=== PATIENT | male | born 1980 | race Caucasian/White ===

== ENCOUNTER 2017-01-16 13:05 | Emergency (ER) | payer OTHER ==
--- NOTE | 2017-01-16 15:58 | DIAGNOSTIC IMAGING REPORT ---
PROCEDURE: CT ABD/PELVIS WITH CONTRAST CLINICAL INDICATION: Lower quadrant and Intal pain. TECHNIQUE: 125 ml of Isovue 300 were injected intravenously and axial images were obtained of the entire abdomen and pelvis with sagittal and coronal reformations. COMPARISON: None. FINDINGS: ABDOMEN: Lung bases are clear. Normal heart size. Liver, gallbladder, pancreas, spleen, adrenal glands and kidneys are normal. Normal abdominal aorta. Wall thickening of the cecum and long segment of the distal ileum. There are mildly prominent right lower quadrant mesenteric lymph nodes. PELVIS: Normal appendix. Normal prostate and bladder. There is no pelvic mass, inflammatory changes or free fluid. No suspicious osseous lesions. IMPRESSION: 1. Wall thickening of the cecum and long segment of the distal ileum suspicious for inflammatory bowel disease (Crohn disease). 2. Results discussed with Dr. Lindsay All CT scans at this facility use dose modulation, iterative reconstruction, and/or weight-based dosing when appropriate to reduce radiation dose to as low as reasonably achievable.
--- NOTE | 2017-01-16 16:22 | ED CLINICAL REPORT ---
Clinical Report - Physicians/Mid Levels [facility] [address] [place] [address] 01/16/2017 13:07 Patient: SUNDAY JONES Time Seen: 13:18. Arrived- By private vehicle. Historian- patient and family. HISTORY OF PRESENT ILLNESS Chief Complaint: LOWER ABDOMINAL PAIN AND RECTAL PAIN. This started several months ago and has been moderate (to severe). (5 days of rectal pain - Clindamycin and stool softeners for 2 months Abdominal pain - 4 days of lower abdominal pain.). Is still present. It was gradual in onset and has been waxing/waning. The patient has had rectal bleeding and pain and nausea but not had dark stools. No constipation. He has had vomiting (yesterday -3-4 times, today none.). (Last BM today, liquid plus pellets, x 4 Bloating Yesterday small amounts of diarrhea. Cant tell difference between gas stool. Fever - yes - subjective. First, episode of abdominal pain was 8 months ago. Three flare-ups since then.). Similar symptoms previously: Several times. Recent medical care: The patient was seen recently by a health care provider. ( Dr Nance for similar symptoms). REVIEW OF SYSTEMS The patient has had a subjective fever, abdominal pain, bloody stools, constipation and diarrhea. No decreased vision, ear pain, sore throat, chest pain or cough. No difficulty breathing or difficulty with urination. The patient has had back pain. It has been similar to previous symptoms. He has had skin rash. Has had similar previous symptoms of skin rash. PAST HISTORY Dea Ops: None Hosp: None Illness: Alternating constipation and diarrhea, psoriasis and seborrhea. Back pain / Tramadol. Medications: Lidocaine External. Docusate Calcium Oral. Clindamycin HCl Oral. Allergies: Aspirin. SOCIAL HISTORY The patient lives with a family member. FAMILY HISTORY (Mom has Chrohns). ADDITIONAL NOTES The nursing notes have been reviewed. PHYSICAL EXAM Vital Signs: 01/16/2017 13:26 BP: 135/91. HR: 92. RR: 20. O2 saturation: 100%. Temp: 98.2 F. Appearance: Alert. Patient in mild distress. Eyes: Eyes normal inspection. ENT: Pharynx normal. Neck: Normal inspection. CVS: Normal heart rate and rhythm. Heart sounds normal. Respiratory: No respiratory distress. Breath sounds normal. Abdomen: Moderate tenderness diffusely. Mild guarding present diffusely. No rebound tenderness. : Normal genitalia. Nontender. No mass noted on examination. Testes descended. Rectal: (Rectal diffusely quite tender. No perirectal masses. No stool). Skin: Moderate, erythematous, papular skin rash located on the face and genitalia. Extremities: Extremities exhibit normal ROM. No lower extremity edema. LABS, X-RAYS, AND EKG Abdominal CT: PROCEDURE: CT ABD/PELVIS WITH CONTRAST CLINICAL INDICATION: Lower quadrant and Intal pain. TECHNIQUE: 125 ml of Isovue 300 were injected intravenously and axial images were obtained of the entire abdomen and pelvis with sagittal and coronal reformations. COMPARISON: None. FINDINGS: ABDOMEN: Lung bases are clear. Normal heart size. Liver, gallbladder, pancreas, spleen, adrenal glands and kidneys are normal. Normal abdominal aorta. Wall thickening of the cecum and long segment of the distal ileum. There are mildly prominent right lower quadrant mesenteric lymph nodes. PELVIS: Normal appendix. Normal prostate and bladder. There is no pelvic mass, inflammatory changes or free fluid. No suspicious osseous lesions. IMPRESSION: 1. Wall thickening of the cecum and long segment of the distal ileum suspicious for inflammatory bowel disease (Crohn disease). 2. Results discussed with Dr. Neftali acharya radiation dose to as low as reasonably achievable. Electronically Final signed by:Kalpesh Carr MD 01/16/2017 3:57:47 PM. The study was interpreted by the radiologist and discussed with the radiologist. Laboratory Tests: UA-Culture if indicated: ([place]: 01/16/2017 15:35) ( MsgRcvd 01/16/2017 15:50) Final results Test Result Flag Units (Reference) URINE COLOR YELLOW URINE APPEARANCE CLEAR URINE GLUCOSE NEGATIVE (NEGATIVE) URINE BILIRUBIN NEGATIVE (NEGATIVE) URINE KETONE NEGATIVE (NEGATIVE) URINE SPECIFIC GRAVITY 1.020 (1.010-1.030) URINE PH 6.0 (5.0-8.0) URINE PROTEIN NEGATIVE (NEGATIVE) URINE UROBILINOGEN 0.2 EU/dL (0.2-1.0) URINE NITRITE NEGATIVE (NEGATIVE) URINE BLOOD NEGATIVE (NEGATIVE) URINE LEUK ESTERASE NEGATIVE (NEGATIVE) URINE RBC NONE SEEN rbc/hpf (0-1) URINE WBC RARE wbc/hpf (0-1) URINE EPITHELIAL CELLS RARE EPI/hpf (0-5) URINE BACTERIA NONE SEEN (NONE SEEN) URINE COMMENT CULT NOT INDICATED URINE CULTURES ARE SET-UP BASED ON THE FOLLOWING CRITERIA:POSITIVE NITRITEPOSITIVE LEUKOCYTE ESTERASEGREATER THAN 10 WHITE BLOOD CELLSMODERATE (2+) OR GREATER BACTERIA CBC w Diff: ([place]: 01/16/2017 14:30) ( [facility] 01/16/2017 14:48) Final results Test Result Flag Units (Reference) WHITE BLOOD COUNT 9.7 K/uL (4.5-11.5) RED BLOOD COUNT 4.91 M/uL (4.50-5.90) HEMOGLOBIN 15.1 gm/dL (13.5-17.5) HEMATOCRIT 44.2 % (41.0-53.0) MEAN CELL VOLUME 90 fL (80-100) MEAN CORPUSCULAR HGB 31 pg (26-34) MEAN CORPUSCULAR HGB CONC 34 g/dL (31-37) RED CELL DISTRIBUTION WIDTH 13.1 % (11.6-14.8) PLATELET COUNT 364 K/uL (150-400) NEUTROPHIL % 69.0 % (50-75) LYMPH % 21.5 L % (25-40) MONO % 6.5 % (3-14) EOSINOPHIL % 2.4 % (0-4) BASOPHIL % 0.6 % (0-2) CMP: ([place]: 01/16/2017 14:30) ( [facility] 01/16/2017 15:01) Final results Test Result Flag Units (Reference) GLUCOSE 94 mg/dL (70-110) BUN 17 mg/dL (7-18) CREATININE 1.0 mg/dL (0.6-1.3) Estimated GFR >60 mL/min Estimated GFR- >60 mL/min Note: Persistent reduction over 3 months in eGFR<60 mL/min/1.73 m2 defines CKD. Patients with eGFR values>=60 mL/min/1.73 m2 may also have CKD if evidence ofpersistent proteinuria. Additional information may be foundat www.kidney.org. SODIUM 140 mmol/L (136-145) POTASSIUM 4.6 mmol/L (3.5-5.1) CHLORIDE 102 mmol/L (98-107) CARBON DIOXIDE 28 mmol/L (21-32) CALCIUM 8.7 mg/dL (8.5-10.1) TOTAL PROTEIN 7.9 g/dL (6.4-8.2) ALBUMIN 3.6 g/dL (3.3-5.0) BILIRUBIN, TOTAL 0.5 mg/dL (0.0-1.0) ALKALINE PHOSPHATASE 65 U/L (46-116) AST (SGOT) 20 U/L (15-37) ALT (SGPT) 40 U/L (12-78) LIPASE 144 U/L (73-393) . PROGRESS AND PROCEDURES Course of Care: Pre-test differential diagnosis. Inflammatory bowel disease. Deep Abscess 15:36 01/16/17. Stool passed in ED was soft but semi-formed Mr. Jones has Crohn's disease. That would account tor a prior fistula history and current symptoms. He does not appear to have a rectal fistula or abscess at this time but does have active Crohn's disease. I will initiate treatment in the ED and refer him to his PCP. Disposition: Discharged. CLINICAL IMPRESSION Acute abdominal pain. Crohn's disease (ACUTE). INSTRUCTIONS Do not work for four days. (IMMEDIATE RECHECK IF WORSE). Prescription Medications: Azulfidine 500 mg tablets: Take 1 tablet orally every 6 hours. Dispense sixty (60). No refills. Substitution is permissible. Metronidazole 500 mg: Take 1 tablet orally every 12 hours for 7 days. No refill. Percocet 5 mg/325 mg: take 1-2 tablets orally every 4 hours. Dispense fifteen (15). No refill. Substitution is permissible. Prednisone 20 mg: take 3 orally every day for 5 days. Dispense fifteen (15). No refills. Follow-up: Follow up with your doctor DR NANCE in four days. Call for an appointment. Understanding of the discharge instructions verbalized by patient. (Electronically signed by Berlin Lindsay MD 01/19/2017 5:59)
--- NOTE | 2017-01-16 16:22 | ED NURSING NOTES ---
Clinical Report - Nurses [facility] [address] [place] [address] 01/16/2017 13:07 Patient: SUNDAY DUVAL TRIAGE Triage time 13:27. Acuity: LEVEL 3. --13:35 Dm Jimenez R.N. 13:26 01/16/17. BP: 135/91. HR: 92. RR: 20. O2 saturation: 100%. Temp: 98.2 F. Pain level now 05/23. --13:35 Dm Jimenez R.N. Chief Complaint: (Anal Fissure). --19:11 Dm Jimenez R.N. Weight: 104.3 kg stated. Height/Length: 71 inches Per Patient. BMI: 32.1. --13:34 Dm Jimenez R.N. Medications Clindamycin HCl Oral. --13:31 Dm Jimenez R.N. Docusate Calcium Oral. --13:32 Dm Jimenez R.N. Lidocaine External. --13:32 Dm Jimenez R.N. Allergies Aspirin. --13:30 Dm Jimenez R.N. History Arrived by private vehicle. Historian: patient and family. Accompanied by family. Onset. (1 months). ( Complicated history of dx of fistula and anal fissure, referred to specialist at [facility] over 1 month ago. He can't see a doctor there because the physician he was referred to had knee surgery. He can't be seen until January 28. He has been taking Clindamycin for 30 days. He is concerned that the 'infection' is getting worse.). SOCIAL HX: Smoker- current status unknown. Alcohol use. No drug use. --13:35 Dm Jimenez R.N. Interventions ID band on patient. To room. --13:35 Dm Jimenez R.N. PHYSICAL ASSESSMENT GENERAL / NEURO / PSYCH: Alert. Oriented X 4. Appears in pain and anxious. RESPIRATORY: Respirations not labored. Breath sounds within normal limits. GI / : Abdominal distention. Abdomen soft. Abdominal tenderness. SKIN: Skin is warm and dry. --13:37 Dm Jimenez R.N. NURSING PROGRESS NOTES Oxygen administered. Patient gowned. Patient identifiers checked. Call light placed in reach. Bed placed in lowest position. Brakes of bed on. --13:38 Dm Jimenez R.N. 14:22 01/16/2017 Site #1 started via IV in the right antecubital space with an 20g angiocath, with aseptic technique and good blood return; one attempt. Blood drawn: rainbow set. Labeled in the presence of the patient and sent to the lab. Saline lock flushed with 10 mL saline. --14:25 Keke Manning R.N. 14:24 01/16/2017 Started bag #1 1000 mL IV Fluids IV NS (Saline); at 1000 mL/hr over 1 hour(s) via site #1 via IV pump. Allergies verified and confirmed 5 rights. IV patency established. IV site checked: no pain, redness, or swelling. IV flushed thoroughly pre- and post-medication administration. --14:25 Keke Manning R.N. 14:25 01/16/2017 Zofran (Ondansetron HCl) IVP 4 mg given over 1 minute(s) via site #1. Allergies verified and confirmed 5 rights. IV patency established. IV site checked: no pain, redness, or swelling. IV flushed thoroughly pre- and post-medication administration. --14:25 Keke Manning R.N. 14:30 01/16/2017 Dilaudid (HYDROmorphone HCl PF) IVP 1 mg given over 2 minute(s) via site #1. Allergies verified, confirmed 5 rights and sedative warning given to the patient. IV patency established. IV site checked: no pain, redness, or swelling. IV flushed thoroughly pre- and post-medication administration. --14:32 Keke Manning R.N. ( IV infusing. Patient feels better. Pt obtained stool sample. Dr Lindsay notified. Stool is heme negative.). --15:04 Dm Jimenez R.N. 15:17 01/16/2017 Zofran IVP Response: symptoms are the same. --15:42 Dm Jimenez R.N. 15:18 01/16/2017 Dilaudid IVP Response: pain is improving. The patient feels better. --15:43 Dm Jimenez R.N. 15:30 01/16/2017 IV Fluids IV NS Discontinued. Total amount infused: 1000 mL. --15:41 Dm Jimenez R.N. 15:41 01/16/2017 Started bag #1 1000 mL IV Fluids IV NS (Saline); at 1000 mL/hr over 1 hour(s) via site #1 --15:41 Dm Jimenez R.N. 16:30 01/16/2017 IV Fluids IV NS Discontinued. Total amount infused: 1000 mL. --19:12 Dm Jimenez R.N. DISPOSITION / DISCHARGE Condition at departure: improved. No learning barriers present. Patient verbalized understanding. Written instructions provided in [place] Islander. The patient was discharged by the physician. He was discharged home and accompanied by parent. He left the Emergency Department ambulatory and via private vehicle. --19:11 Dm Jimenez R.N. 19:09 01/16/17. BP: 140/70. HR: 90. RR: 20. O2 saturation: 97%. Temp: 98 F. Pain level now 5/10. --19:11 Dm Jimenez R.N. Locked/Released at 01/16/2017 19:19 by Dm Jimenez R.N.
--- NOTE | 2017-01-16 16:22 | ED ORDER SUMMARY ---
..... Patient: SUNDAY DUVAL OrderSheet [facility] VisitID: [id number] [place] [address] 36y, M Registration Date/Time: 01/16/2017 ORDER SHEET Weight: 104.3 kg (stated) Allergies: Aspirin GENERAL ORDERS: CBC w Diff Urgent (14:00 01/16/2017 Hafsa RYAN) (Ack 14:05 Suman) (14:24 SReitz R.N.) CMP Urgent (14:00 01/16/2017 Hafsa RYAN) (Ack 14:05 Suman) (14:24 SReitz R.N.) UA-Culture if indicated Urgent (14:00 01/16/2017 Hafsa RYAN) (Ack 14:05 Suman) (19:19 GMarshall R.N.) Lipase Urgent (14:00 01/16/2017 Hafsa RYAN) (Ack 14:05 Suman) (14:24 SReitz R.N.) CT Abd/Pel w Cont (No) (Pending - hold study until labs done) Urgent (14:05 01/16/2017 Hafsa RYAN) (Ack 14:06 Suman) (15:24 GMarshall R.N.) MEDICATION ORDERS: Prednisone PO 60 mg (NOW) (16:15 01/16/2017 Hafsa RYAN) (Ack 16:39 MWinterer R.N.) IV FLUIDS: IV NS : initial bolus none -, then 1000 mL/hr for 2h (NOW); Urgent (14:00 01/16/2017 Hafsa RYAN) (14:25 SReitz R.N.) Dilaudid IV 1 mg (NOW) (14:07 01/16/2017 Hafsa RYAN) (14:32 SReitz R.N.) Zofran IV 4 mg (NOW) (14:08 01/16/2017 Hafsa RYAN) (14:25 SReitz R.N.) ORDER SHEET NOTES: [Electronically signed by Dm Jimenez R.N. (19:19 01/16/2017)] [Electronically signed by Berlin Lindsay MD (05:59 01/19/2017)] [Electronically locked/signed by Dm Jimenez R.N. (19:19 01/16/2017)]
--- NOTE | 2017-01-16 16:22 | ED ORDER SUMMARY ---
..... Patient: SUNDAY DUVAL OrderSheet [facility] VisitID: [id number] [place] [address] 36y, M Registration Date/Time: 01/16/2017 ORDER SHEET Weight: 104.3 kg (stated) Allergies: Aspirin GENERAL ORDERS: CBC w Diff Urgent (14:00 01/16/2017 Hafsa RYAN) (Ack 14:05 Suman) (14:24 SReitz R.N.) CMP Urgent (14:00 01/16/2017 Hafsa RYAN) (Ack 14:05 Suman) (14:24 SReitz R.N.) UA-Culture if indicated Urgent (14:00 01/16/2017 Hafsa RYAN) (Ack 14:05 Suman) (19:19 GMarshall R.N.) Lipase Urgent (14:00 01/16/2017 Hafsa RYAN) (Ack 14:05 Suman) (14:24 SReitz R.N.) CT Abd/Pel w Cont (No) (Pending - hold study until labs done) Urgent (14:05 01/16/2017 Hafsa RYAN) (Ack 14:06 Suman) (15:24 GMarshall R.N.) MEDICATION ORDERS: Prednisone PO 60 mg (NOW) (16:15 01/16/2017 Hafsa RYAN) (Ack 16:39 MWinterer R.N.) IV FLUIDS: IV NS : initial bolus none -, then 1000 mL/hr for 2h (NOW); Urgent (14:00 01/16/2017 Hafsa RYAN) (14:25 SReitz R.N.) Dilaudid IV 1 mg (NOW) (14:07 01/16/2017 Hafsa RYAN) (14:32 SReitz R.N.) Zofran IV 4 mg (NOW) (14:08 01/16/2017 Hafsa RYAN) (14:25 SReitz R.N.) ORDER SHEET NOTES: [Electronically signed by Dm Jimenez R.N. (19:19 01/16/2017)] [Electronically signed by Berlin Lindsay MD (05:59 01/19/2017)] [Electronically locked/signed by Dm Jimenez R.N. (19:19 01/16/2017)]
--- NOTE | 2017-01-19 05:59 | ED DISCHARGE INSTRUCTIONS ---
Patient: SUNDAY DUVAL General Instructions [facility] VisitID: [id number] [address] [place] [address] 36y, M Registration Date/Time: 01/16/2017 Acute abdominal pain. Crohn's disease (ACUTE). INSTRUCTIONS Do not work for four days. (IMMEDIATE RECHECK IF WORSE). Prescription Medications: Azulfidine 500 mg tablets: Take 1 tablet orally every 6 hours. Dispense sixty (60). No refills. Substitution is permissible. Metronidazole 500 mg: Take 1 tablet orally every 12 hours for 7 days. No refill. Percocet 5 mg/325 mg: take 1-2 tablets orally every 4 hours. Dispense fifteen (15). No refill. Substitution is permissible. Prednisone 20 mg: take 3 orally every day for 5 days. Dispense fifteen (15). No refills. Follow-up: Follow up with your doctor DR NANCE in four days. Call for an appointment. Understanding of the discharge instructions verbalized by patient. ADDITIONAL INFORMATION Abdominal Pain,Uncertain Cause [Male] Based on your visit today, the exact cause of your abdominalpain is not clear. Your exam and tests do not indicate a dangerous cause at this time. However, the signs of a serious problem may take more time to appear. Although your evaluation was reassuring today, sometimes early in the course of many conditions, exam and lab tests can appear normal. Therefore, it is important for you to watch for any new symptoms or worsening of your condition. Causes It may not be obvious what caused your symptoms. Pay attention to things that do seem to make your symptoms worse or better and discuss this with your doctor when you follow up. Diagnosis The evaluation of abdominal pain in the emergency department may onlyrequire an exam by the doctor or it may include blood, urine or imaging studies, depending on many factors. Sometimes exams and tests can identify a cause but in many cases, a clear cause is not found. Further testing at follow up visits may help to suggest a clear diagnosis. Home Care Rest as much as possible until your next exam. Try to avoid any medications (unless otherwise directed by your doctor), foods, activities, or other factors that you may have contributed to your symptoms. Try to eat foods that you know that you have tolerated well in the past. Certain diets may be recommended for some conditions that cause abdominal pain. However, since the cause of your symptoms may not be clear, discuss your diet more with your primary care provider or specialist for further recommendations. Eating several small meals per day as opposed to 2 or 3 larger meals may help. Monitor closely for anything that may make your symptoms worse or better. Pay close attention to symptoms below that may indicate worsening of your condition. Follow Up and Precautions See your doctoras instructed or sooneror if your symptoms are not improving.In some cases, you may need more testing. When to Seek Medical Attention Contact your doctor or see medical attention ifany of the following occur: Pain is becoming worse You are unable to take your medications due to excessive vomiting Swelling of the abdomen Fever of 100.4F (38C) or higher, or as directed by your health care provider Blood in vomit or bowel movements (dark red or black color) Jaundice (yellow color of eyes and skin) New onset of weakness, dizziness or fainting New onset of chest, arm, back, neck or jaw pain Crohns Disease Crohns disease is a chronic inflammation of the intestinal tract that comes and goes. Crohns is a form of Inflammatory Bowel Disease. The exact cause is not known. Chronic diarrhea may alternate with constipation. During a symptom flare, there may be intense abdominal pain and fever. Mucus, blood or pus may appear in the stool. This is a chronic illness and episodes of inflammation come and go over time. When the disease is not active, there are usually no symptoms. Home Care: DIET: Talk to your doctor or ask for a referral to a dietitian to develop a meal plan that works for you. Learn what foods worsen your symptoms. Keeping a food diary may help with this. Eating smaller meals at more frequent intervals (4-5 times a day). Avoid greasy or fried foods. Limit consumption of milk and milk products (butter, margarine, cream sauces). If you are lactose intolerant ask your doctor to advise a digestive supplement. During a flare-up of your symptoms, avoid high fiber foods such as nuts, corn, popcorn and [place] vegetables. MEDICATIONS: For mild to moderate cramping and diarrhea, you may use Imodium AD ([id number]), unless another medicine was prescribed. For acute flares of your illness, prescription medicines can be prescribed. Contact your doctor if this is needed. Follow Up with your doctor as advised by your staff. Support Groups for persons Crohns disease can be a source of useful information on how others are coping with this illness. They are available in person, on the phone, or via the Internet. Contact the following resources for more information. Croh[employer] 551.585.1680 www.ccfa.org National Digestive Diseases Information Clearinghouse (NDDIC) 930.388.3574 www.digestive.niddk.nih.gov Get Prompt Medical Attention if any of the following occur: Fever of 100.4F(38C) or higher, or as directed by your healthcare provider Abdominal pain that does not respond to usual measures Mucus, pus or blood in the stool (dark or bright red) Repeated vomiting Abdominal swelling and pain that does not go away after a few hours Oxycodone Hydrochloride, Acetaminophen Oral tablet What is this medicine? ACETAMINOPHEN; OXYCODONE (a set a MAURI ernst fen; ox i KOE done) is a pain reliever. It is used to treat mild to moderate pain. How should I use this medicine? Take this medicine by mouth with a full glass of water. Follow the directions on the prescription label. Take your medicine at regular intervals. Do not take your medicine more often than directed. Talk to your certified respiratory therapist regarding the use of this medicine in children. Special care may be needed. Patients over 65 years old may have a stronger reaction and need a smaller dose. What side effects may I notice from receiving this medicine? Side effects that you should report to your doctor or health child care nurse as soon as possible: allergic reactions like skin rash, itching or hives, swelling of the face, lips, or tongue breathing difficulties, wheezing confusion light headedness or fainting spells severe stomach pain yellowing of the skin or the whites of the eyes Side effects that usually do not require medical attention (report to your doctor or health child care nurse if they continue or are bothersome): dizziness drowsiness nausea vomiting What may interact with this medicine? alcohol antihistamines barbiturates like amobarbital, butalbital, butabarbital, methohexital, pentobarbital, phenobarbital, thiopental, and secobarbital benztropine drugs for bladder problems like solifenacin, trospium, oxybutynin, tolterodine, hyoscyamine, and methscopolamine drugs for breathing problems like ipratropium and tiotropium drugs for certain stomach or intestine problems like propantheline, homatropine methylbromide, glycopyrrolate, atropine, belladonna, and dicyclomine general anesthetics like etomidate, ketamine, nitrous oxide, propofol, desflurane, enflurane, halothane, isoflurane, and sevoflurane medicines for depression, anxiety, or psychotic disturbances medicines for sleep muscle relaxants naltrexone narcotic medicines (opiates) for pain phenothiazines like perphenazine, thioridazine, chlorpromazine, mesoridazine, fluphenazine, prochlorperazine, promazine, and trifluoperazine scopolamine tramadol trihexyphenidyl What if I miss a dose? If you miss a dose, take it as soon as you can. If it is almost time for your next dose, take only that dose. Do not take double or extra doses. Where should I keep my medicine? Keep out of the reach of children. This medicine can be abused. Keep your medicine in a safe place to protect it from theft. Do not share this medicine with anyone. Selling or giving away this medicine is dangerous and against the law. Store at room temperature between 20 and 25 degrees C (68 and 77 degrees F). Keep container tightly closed. Protect from light. This medicine may cause accidental overdose and if it is taken by other adults, children, or pets. Flush any unused medicine down the toilet to reduce the chance of harm. Do not use the medicine after the expiration date. What should I tell my health care provider before I take this medicine? They need to know if you have any of these conditions: brain tumor Crohn's disease, inflammatory bowel disease, or ulcerative colitis drink more than 3 alcohol containing drinks per day drug abuse or addiction head injury heart or circulation problems kidney disease or problems going to the bathroom liver disease lung disease, asthma, or breathing problems an unusual or allergic reaction to acetaminophen, oxycodone, other opioid analgesics, other medicines, foods, dyes, or preservatives or trying to get breast-feeding What should I watch for while using this medicine? Tell your doctor or health child care nurse if your pain does not go away, if it gets worse, or if you have new or a different type of pain. You may develop tolerance to the medicine. Tolerance means that you will need a higher dose of the medication for pain relief. Tolerance is normal and is expected if you take this medicine for a long time. Do not suddenly stop taking your medicine because you may develop a severe reaction. Your body becomes used to the medicine. This does NOT mean you are addicted. Addiction is a behavior related to getting and using a drug for a non-medical reason. If you have pain, you have a medical reason to take pain medicine. Your doctor will tell you how much medicine to take. If your doctor wants you to stop the medicine, the dose will be slowly lowered over time to avoid any side effects. You may get drowsy or dizzy. Do not drive, use machinery, or do anything that needs mental alertness until you know how this medicine affects you. Do not stand or sit up quickly, especially if you are an older patient. This reduces the risk of dizzy or fainting spells. Alcohol may interfere with the effect of this medicine. Avoid alcoholic drinks. There are different types of narcotic medicines (opiates) for pain. If you take more than one type at the same time, you may have more side effects. Give your health care provider a list of all medicines you use. Your doctor will tell you how much medicine to take. Do not take more medicine than directed. Call emergency for help if you have problems breathing. The medicine will cause constipation. Try to have a bowel movement at least every 2 to 3 days. If you do not have a bowel movement for 3 days, call your doctor or health child care nurse. Do not take Tylenol (acetaminophen) or medicines that have acetaminophen with this medicine. Too much acetaminophen can be very dangerous. Many nonprescription medicines contain acetaminophen. Always read the labels carefully to avoid taking more acetaminophen. You have been given the following additional information: Abdominal Pain, Unknown Cause, (Male) Crohn's Disease Oxycodone Hydrochloride, Acetaminophen Oral tablet Do not work for four days. (Electronically signed by Berlin Lindsay MD 01/19/2017 5:59)
--- NOTE | 2017-01-19 05:59 | ED DISCHARGE INSTRUCTIONS ---
Patient: SUNDAY DUVAL General Instructions [facility] VisitID: [id number] [address] [place] [address] 36y, M Registration Date/Time: 01/16/2017 Acute abdominal pain. Crohn's disease (ACUTE). INSTRUCTIONS Do not work for four days. (IMMEDIATE RECHECK IF WORSE). Prescription Medications: Azulfidine 500 mg tablets: Take 1 tablet orally every 6 hours. Dispense sixty (60). No refills. Substitution is permissible. Metronidazole 500 mg: Take 1 tablet orally every 12 hours for 7 days. No refill. Percocet 5 mg/325 mg: take 1-2 tablets orally every 4 hours. Dispense fifteen (15). No refill. Substitution is permissible. Prednisone 20 mg: take 3 orally every day for 5 days. Dispense fifteen (15). No refills. Follow-up: Follow up with your doctor DR NANCE in four days. Call for an appointment. Understanding of the discharge instructions verbalized by patient. ADDITIONAL INFORMATION Abdominal Pain,Uncertain Cause [Male] Based on your visit today, the exact cause of your abdominalpain is not clear. Your exam and tests do not indicate a dangerous cause at this time. However, the signs of a serious problem may take more time to appear. Although your evaluation was reassuring today, sometimes early in the course of many conditions, exam and lab tests can appear normal. Therefore, it is important for you to watch for any new symptoms or worsening of your condition. Causes It may not be obvious what caused your symptoms. Pay attention to things that do seem to make your symptoms worse or better and discuss this with your doctor when you follow up. Diagnosis The evaluation of abdominal pain in the emergency department may onlyrequire an exam by the doctor or it may include blood, urine or imaging studies, depending on many factors. Sometimes exams and tests can identify a cause but in many cases, a clear cause is not found. Further testing at follow up visits may help to suggest a clear diagnosis. Home Care Rest as much as possible until your next exam. Try to avoid any medications (unless otherwise directed by your doctor), foods, activities, or other factors that you may have contributed to your symptoms. Try to eat foods that you know that you have tolerated well in the past. Certain diets may be recommended for some conditions that cause abdominal pain. However, since the cause of your symptoms may not be clear, discuss your diet more with your primary care provider or specialist for further recommendations. Eating several small meals per day as opposed to 2 or 3 larger meals may help. Monitor closely for anything that may make your symptoms worse or better. Pay close attention to symptoms below that may indicate worsening of your condition. Follow Up and Precautions See your doctoras instructed or sooneror if your symptoms are not improving.In some cases, you may need more testing. When to Seek Medical Attention Contact your doctor or see medical attention ifany of the following occur: Pain is becoming worse You are unable to take your medications due to excessive vomiting Swelling of the abdomen Fever of 100.4F (38C) or higher, or as directed by your health care provider Blood in vomit or bowel movements (dark red or black color) Jaundice (yellow color of eyes and skin) New onset of weakness, dizziness or fainting New onset of chest, arm, back, neck or jaw pain Crohns Disease Crohns disease is a chronic inflammation of the intestinal tract that comes and goes. Crohns is a form of Inflammatory Bowel Disease. The exact cause is not known. Chronic diarrhea may alternate with constipation. During a symptom flare, there may be intense abdominal pain and fever. Mucus, blood or pus may appear in the stool. This is a chronic illness and episodes of inflammation come and go over time. When the disease is not active, there are usually no symptoms. Home Care: DIET: Talk to your doctor or ask for a referral to a dietitian to develop a meal plan that works for you. Learn what foods worsen your symptoms. Keeping a food diary may help with this. Eating smaller meals at more frequent intervals (4-5 times a day). Avoid greasy or fried foods. Limit consumption of milk and milk products (butter, margarine, cream sauces). If you are lactose intolerant ask your doctor to advise a digestive supplement. During a flare-up of your symptoms, avoid high fiber foods such as nuts, corn, popcorn and [place] vegetables. MEDICATIONS: For mild to moderate cramping and diarrhea, you may use Imodium AD ([id number]), unless another medicine was prescribed. For acute flares of your illness, prescription medicines can be prescribed. Contact your doctor if this is needed. Follow Up with your doctor as advised by your staff. Support Groups for persons Crohns disease can be a source of useful information on how others are coping with this illness. They are available in person, on the phone, or via the Internet. Contact the following resources for more information. Croh[employer] 882.904.5278 www.ccfa.org National Digestive Diseases Information Clearinghouse (NDDIC) 798.614.1509 www.digestive.niddk.nih.gov Get Prompt Medical Attention if any of the following occur: Fever of 100.4F(38C) or higher, or as directed by your healthcare provider Abdominal pain that does not respond to usual measures Mucus, pus or blood in the stool (dark or bright red) Repeated vomiting Abdominal swelling and pain that does not go away after a few hours Oxycodone Hydrochloride, Acetaminophen Oral tablet What is this medicine? ACETAMINOPHEN; OXYCODONE (a set a MAURI ernst fen; ox i KOE done) is a pain reliever. It is used to treat mild to moderate pain. How should I use this medicine? Take this medicine by mouth with a full glass of water. Follow the directions on the prescription label. Take your medicine at regular intervals. Do not take your medicine more often than directed. Talk to your hydraulic press operator regarding the use of this medicine in children. Special care may be needed. Patients over 65 years old may have a stronger reaction and need a smaller dose. What side effects may I notice from receiving this medicine? Side effects that you should report to your doctor or health care transition mgr as soon as possible: allergic reactions like skin rash, itching or hives, swelling of the face, lips, or tongue breathing difficulties, wheezing confusion light headedness or fainting spells severe stomach pain yellowing of the skin or the whites of the eyes Side effects that usually do not require medical attention (report to your doctor or health care transition mgr if they continue or are bothersome): dizziness drowsiness nausea vomiting What may interact with this medicine? alcohol antihistamines barbiturates like amobarbital, butalbital, butabarbital, methohexital, pentobarbital, phenobarbital, thiopental, and secobarbital benztropine drugs for bladder problems like solifenacin, trospium, oxybutynin, tolterodine, hyoscyamine, and methscopolamine drugs for breathing problems like ipratropium and tiotropium drugs for certain stomach or intestine problems like propantheline, homatropine methylbromide, glycopyrrolate, atropine, belladonna, and dicyclomine general anesthetics like etomidate, ketamine, nitrous oxide, propofol, desflurane, enflurane, halothane, isoflurane, and sevoflurane medicines for depression, anxiety, or psychotic disturbances medicines for sleep muscle relaxants naltrexone narcotic medicines (opiates) for pain phenothiazines like perphenazine, thioridazine, chlorpromazine, mesoridazine, fluphenazine, prochlorperazine, promazine, and trifluoperazine scopolamine tramadol trihexyphenidyl What if I miss a dose? If you miss a dose, take it as soon as you can. If it is almost time for your next dose, take only that dose. Do not take double or extra doses. Where should I keep my medicine? Keep out of the reach of children. This medicine can be abused. Keep your medicine in a safe place to protect it from theft. Do not share this medicine with anyone. Selling or giving away this medicine is dangerous and against the law. Store at room temperature between 20 and 25 degrees C (68 and 77 degrees F). Keep container tightly closed. Protect from light. This medicine may cause accidental overdose and if it is taken by other adults, children, or pets. Flush any unused medicine down the toilet to reduce the chance of harm. Do not use the medicine after the expiration date. What should I tell my health care provider before I take this medicine? They need to know if you have any of these conditions: brain tumor Crohn's disease, inflammatory bowel disease, or ulcerative colitis drink more than 3 alcohol containing drinks per day drug abuse or addiction head injury heart or circulation problems kidney disease or problems going to the bathroom liver disease lung disease, asthma, or breathing problems an unusual or allergic reaction to acetaminophen, oxycodone, other opioid analgesics, other medicines, foods, dyes, or preservatives or trying to get breast-feeding What should I watch for while using this medicine? Tell your doctor or health care transition mgr if your pain does not go away, if it gets worse, or if you have new or a different type of pain. You may develop tolerance to the medicine. Tolerance means that you will need a higher dose of the medication for pain relief. Tolerance is normal and is expected if you take this medicine for a long time. Do not suddenly stop taking your medicine because you may develop a severe reaction. Your body becomes used to the medicine. This does NOT mean you are addicted. Addiction is a behavior related to getting and using a drug for a non-medical reason. If you have pain, you have a medical reason to take pain medicine. Your doctor will tell you how much medicine to take. If your doctor wants you to stop the medicine, the dose will be slowly lowered over time to avoid any side effects. You may get drowsy or dizzy. Do not drive, use machinery, or do anything that needs mental alertness until you know how this medicine affects you. Do not stand or sit up quickly, especially if you are an older patient. This reduces the risk of dizzy or fainting spells. Alcohol may interfere with the effect of this medicine. Avoid alcoholic drinks. There are different types of narcotic medicines (opiates) for pain. If you take more than one type at the same time, you may have more side effects. Give your health care provider a list of all medicines you use. Your doctor will tell you how much medicine to take. Do not take more medicine than directed. Call emergency for help if you have problems breathing. The medicine will cause constipation. Try to have a bowel movement at least every 2 to 3 days. If you do not have a bowel movement for 3 days, call your doctor or health care transition mgr. Do not take Tylenol (acetaminophen) or medicines that have acetaminophen with this medicine. Too much acetaminophen can be very dangerous. Many nonprescription medicines contain acetaminophen. Always read the labels carefully to avoid taking more acetaminophen. You have been given the following additional information: Abdominal Pain, Unknown Cause, (Male) Crohn's Disease Oxycodone Hydrochloride, Acetaminophen Oral tablet Do not work for four days. (Electronically signed by Berlin Lindsay MD 01/19/2017 5:59)
--- NOTE | 2017-01-19 06:00 | ED MED RECONCILIATION SUMMARY ---
Patient: SUNDAY DUVAL Medication Reconciliation Report [facility] VisitID: [id number] [address] [place] [address] 36y, M Registration Date/Time: 01/16/2017 Weight: 104.3 kg Height/Length: 71 in. BMI: 32.1 ALLERGIES: Aspirin The patient's Home Medications are listed below: THE FOLLOWING MEDICATIONS NEED TO BE RECONCILED: Clindamycin HCl Oral Docusate Calcium Oral Lidocaine External The source(s) of the original Home Medication information: Not obtained. The following Medications were given to the patient in the Emergency Department: IV NS IV Fluids bolus 0, then 1000 mL/hr, administered: 01/16/2017 2:24:00 PM Zofran [IVP] IVP 4 mg, administered: 01/16/2017 2:25:00 PM Dilaudid [IVP] IVP 1 mg, administered: 01/16/2017 2:30:00 PM IV NS IV Fluids bolus 0, then 1000 mL/hr, administered: 01/16/2017 3:41:00 PM The following Medications were prescribed to the patient: Azulfidine 500 mg tablets: Take 1 tablet orally every 6 hours. Dispense sixty (60). No refills. Substitution is permissible. -- Berlin Lindsay MD Metronidazole 500 mg: Take 1 tablet orally every 12 hours for 7 days. No refill. -- Berlin Lindsay MD Percocet 5 mg/325 mg: take 1-2 tablets orally every 4 hours. Dispense fifteen (15). No refill. Substitution is permissible. -- Berlin Lindsay MD Prednisone 20 mg: take 3 orally every day for 5 days. Dispense fifteen (15). No refills. -- Berlin Lindsay MD
--- NOTE | 2017-01-19 06:00 | ED MAR SUMMARY ---
..... Medication Administration Record [facility] [address] [place] [address] Patient: SUNDAY DUVAL Visit ID: [id number] 36y, M Weight: 104.3 kg Height/Length: 71 in BMI: 32.1 ALLERGIES: Aspirin Start 14:24 01/16/2017 Keke Manning R.N., Stop 15:30 01/16/2017 Dm Jimenez R.N. Medication Administered: IV NS (SALINE), Dose: IV Fluids over 1 hour(s), Rate: 1000 mL/hr, Dispensed: 1000 mL bag, Site: #1 right AC. Medication Ordered: IV NS : initial bolus none -, then 1000 mL/hr for 2h (NOW); Urgent. Given 14:25 01/16/2017 Keke Manning R.N. Medication Administered: ZOFRAN [IVP] (ONDANSETRON HCL), Dose: 4 mg IVP over 1 minute(s), Site: #1 right AC. Medication Ordered: Zofran IV 4 mg (NOW). Given 14:30 01/16/2017 Keke Manning R.N. Medication Administered: DILAUDID [IVP] (HYDROMORPHONE HCL PF), Dose: 1 mg IVP over 2 minute(s), Site: #1 right AC. Medication Ordered: Dilaudid IV 1 mg (NOW). Start 15:41 01/16/2017 Dm Jimenez R.N., Stop 16:30 01/16/2017 Dm Jimenez R.N. Medication Administered: IV NS (SALINE), Dose: IV Fluids over 1 hour(s), Rate: 1000 mL/hr, Dispensed: 1000 mL bag, Site: #1 right AC. Medication Ordered: IV NS : initial bolus none -, then 1000 mL/hr for 2h (NOW); Urgent.
--- NOTE | 2017-01-19 06:00 | ED MAR SUMMARY ---
..... Medication Administration Record Located Within [facility] [address] [place] [address] Patient: SUNDAY DUVAL Visit ID: [id number] 36y, M Weight: 104.3 kg Height/Length: 71 in BMI: 32.1 ALLERGIES: Aspirin Start 14:24 01/16/2017 Keke Manning R.N., Stop 15:30 01/16/2017 Dm Jimenez R.N. Medication Administered: IV NS (SALINE), Dose: IV Fluids over 1 hour(s), Rate: 1000 mL/hr, Dispensed: 1000 mL bag, Site: #1 right AC. Medication Ordered: IV NS : initial bolus none -, then 1000 mL/hr for 2h (NOW); Urgent. Given 14:25 01/16/2017 Keke Manning R.N. Medication Administered: ZOFRAN [IVP] (ONDANSETRON HCL), Dose: 4 mg IVP over 1 minute(s), Site: #1 right AC. Medication Ordered: Zofran IV 4 mg (NOW). Given 14:30 01/16/2017 Keke Manning R.N. Medication Administered: DILAUDID [IVP] (HYDROMORPHONE HCL PF), Dose: 1 mg IVP over 2 minute(s), Site: #1 right AC. Medication Ordered: Dilaudid IV 1 mg (NOW). Start 15:41 01/16/2017 Dm Jimenez R.N., Stop 16:30 01/16/2017 Dm Jimenez R.N. Medication Administered: IV NS (SALINE), Dose: IV Fluids over 1 hour(s), Rate: 1000 mL/hr, Dispensed: 1000 mL bag, Site: #1 right AC. Medication Ordered: IV NS : initial bolus none -, then 1000 mL/hr for 2h (NOW); Urgent.
--- NOTE | 2017-01-19 06:00 | ED MED RECONCILIATION SUMMARY ---
Patient: SUNDAY DUVAL Medication Reconciliation Report [facility] VisitID: [id number] [address] [place] [address] 36y, M Registration Date/Time: 01/16/2017 Weight: 104.3 kg Height/Length: 71 in. BMI: 32.1 ALLERGIES: Aspirin The patient's Home Medications are listed below: THE FOLLOWING MEDICATIONS NEED TO BE RECONCILED: Clindamycin HCl Oral Docusate Calcium Oral Lidocaine External The source(s) of the original Home Medication information: Not obtained. The following Medications were given to the patient in the Emergency Department: IV NS IV Fluids bolus 0, then 1000 mL/hr, administered: 01/16/2017 2:24:00 PM Zofran [IVP] IVP 4 mg, administered: 01/16/2017 2:25:00 PM Dilaudid [IVP] IVP 1 mg, administered: 01/16/2017 2:30:00 PM IV NS IV Fluids bolus 0, then 1000 mL/hr, administered: 01/16/2017 3:41:00 PM The following Medications were prescribed to the patient: Azulfidine 500 mg tablets: Take 1 tablet orally every 6 hours. Dispense sixty (60). No refills. Substitution is permissible. -- Berlin Lindsay MD Metronidazole 500 mg: Take 1 tablet orally every 12 hours for 7 days. No refill. -- Berlin Lindsay MD Percocet 5 mg/325 mg: take 1-2 tablets orally every 4 hours. Dispense fifteen (15). No refill. Substitution is permissible. -- Berlin Lindsay MD Prednisone 20 mg: take 3 orally every day for 5 days. Dispense fifteen (15). No refills. -- Berlin Lindsay MD
== END 2017-01-16 16:30 | disposition home or self-care (01) ==
LOC: ED SRH 13:05
DX: K50.90 Crohn's disease, unspecified, without complications (principal); R10.32 Left lower quadrant pain; Z79.899 Other long term (current) drug therapy; Z79.2 Long term (current) use of antibiotics; Z88.6 Allergy status to analgesic agent
CPT/HCPCS: 90004; 90100; 92235; 95059